=== PATIENT | female | born 1980 ===

== ENCOUNTER 2017-08-26 15:56 | Emergency (ER) | payer BC ==
[2017-08-26 16:26] VITALS: O2SAT 100
[2017-08-26] MEDS ORDERED: Sodium Chloride 0.9% 1,000 ML IV ONE (16:31)
[2017-08-26] MEDS ORDERED: Pantoprazole 40 mg EC Tab PO STA (16:33)
[2017-08-26 16:51] LABS: BASO # 0.1 K/uL (0.0-0.2); EOS # 0.1 K/uL (0.0-0.7); HEMOGLOBIN 13.6 g/dL (11.0-16.0); LYMPH # 2.3 K/uL (1.0-4.3); LYMPH % 31.4 % (20.0-40.0); MEAN CORPUSCULAR HEMOGLOBIN 30.5 pg (27.0-31.0); MEAN CORPUSCULAR HGB CONC 33.5 g/dL (33.0-37.0); MEAN PLATELET VOLUME 7.3 fL (7.2-11.7); MONO # 0.6 K/uL (0.0-0.8); MONO % 8.4 % (0.0-10.0); NEUT # 4.2 K/uL (1.8-7.0); NEUT % 57.2 % (50.0-75.0); RBC 4.47 Mil/uL (3.80-5.20); RED CELL DISTRIBUTION WIDTH 13.3 % (11.5-14.5); WHITE BLOOD COUNT 7.3 K/uL (4.8-10.8)
[2017-08-26 17:02] LABS: HCG,QUALITATIVE URINE NEGATIVE (NEGATIVE)
[2017-08-26 17:05] LABS: SQUAMOUS EPITHIAL 2 /hpf (0-5); URINE AMORPHOUS SEDIMENT MODERATE /ul (<OCC); URINE BILIRUBIN NEGATIVE (NEGATIVE); URINE BLOOD 2+ (NEGATIVE); URINE CLARITY Hazy (Clear); URINE COLOR Yellow (YELLOW); URINE GLUCOSE (UA) NORMAL (Normal); URINE LEUKOCYTE ESTERASE NEG Leu/uL (Negative); URINE PROTEIN NEGATIVE (NEGATIVE); URINE UROBILINOGEN NORMAL mg/dL (0.2-1.0)
--- NOTE | 2017-08-26 17:05 | C.PDOC ---
History Of Present Illness 36 yo female w/PMHx of endometriosis, ovarian cyst, come in for evaluation of "diffuse lower abdominal pain" for past 3-4 days. Pt reports, delay menstrual period for 11 days. Abdominal pain is intermitted associated with nausea. Otherwise, pt denies fever, chills, headache, dizziness, recent illness, drooling, neck pain, CP, SOB, dyspnea, vomiting, diarrhea, UTI sx, back pain, denies vaginal irritation or discharges. Ambulate to Ed for evaluation, not in nay apparent distress. Time Seen by Provider: 08/26/17 16:30 Chief Complaint (Nursing): Abdominal Pain History Per: Patient Past Medical History Reviewed: Historical Data, Nursing Documentation, Vital Signs Vital Signs: Last Vital Signs Temp 99.3 F 08/26/17 16:25 Pulse 81 08/26/17 16:25 Resp 18 08/26/17 16:25 BP 137/85 08/26/17 16:25 Pulse Ox 100 08/26/17 19:05 - Medical History Other PMH: Endometriosis Surgical History: No Surg Hx Family History: States: No Known Family Hx - Social History Hx Alcohol Use: Yes Hx Substance Use: No - Immunization History Hx Tetanus Toxoid Vaccination: No Hx Influenza Vaccination: No Hx Pneumococcal Vaccination: No Review Of Systems Except As Marked, All Systems Reviewed And Found Negative. Constitutional: Negative for: Fever, Chills Eyes: Negative for: Vision Change ENT: Negative for: Ear Discharge, Throat Pain, Throat Swelling Cardiovascular: Negative for: Chest Pain, Palpitations Respiratory: Negative for: Cough, Shortness of Breath, Wheezing Gastrointestinal: Positive for: Nausea, Abdominal Pain. Negative for: Vomiting , Diarrhea, Melena, Hematochezia, Hematemesis Genitourinary: Negative for: Dysuria, Frequency, Incontinence, Vaginal Discharge , Vaginal Bleeding Musculoskeletal: Negative for: Neck Pain, Back Pain Skin: Negative for: Rash Neurological: Negative for: Altered Mental Status, Headache, Dizziness Physical Exam - Physical Exam Appears: Well, Non-toxic, No Acute Distress Skin: Normal Color, Warm, Dry, No Rash Head: Normacephalic Eye(s): bilateral: PERRL Nose: No Flaring, No Discharge Oral Mucosa: Moist, No Drooling Tongue: Normal Appearing Lips: Normal Appearing Throat: No Erythema Neck: Supple Cardiovascular: Rhythm Regular Respiratory: No Decreased Breath Sounds, No Accessory Muscle Use, No Stridor, No Wheezing Gastrointestinal/Abdominal: Soft, Tenderness (mild epigastric), No Distention, No Guarding, No Rebound Back: No CVA Tenderness Extremity: Normal ROM, No Deformity, No Swelling Neurological/Psych: Oriented x3, Normal Speech ED Course And Treatment - Laboratory Results Result Diagrams: 08/26/17 16:46 08/26/17 18:07 Lab Interpretation: Normal Urine POC: Negative O2 Sat by Pulse Oximetry: 100 Pulse Ox Interpretation: Normal Progress Note: As per RN, pt refused offered medication tx, refused hydration with IVF. On re-eval, pt is afebrile, hemodynamicaly stable. non-toxic. Tolerate Po well in ED. PulsEOx 100% RA. ENT: no acute findings. neck: Supple , (-) JVD. Lungs: CTA B/L, BS equal B/L. Abd: benign, (-) guarding, (-) rebound. Neurologicaly intact. Blood work review and appears without acute abnoramlities. uA- normal study. Pt has clinical findings c/w epigastric pain. Pt advised and ref. to f/u with PMD, GI, SOCIAL SERVICES AIDE in 2-3 days for re-eavl. return if any new changes. Disposition Counseled Patient/Family Regarding: Studies Performed, Diagnosis, Need For Followup - Disposition Referrals: Boris Gaona MD [Staff Provider] - [facility] [Outside] Disposition: HOME/ ROUTINE Disposition Time: 18:27 Condition: STABLE Additional Instructions: Encourage fluids Diet restriction. Follow up with PMD, SOCIAL SERVICES AIDE in 2-3 days for re-evaluation. return to ED if any worsening or new changes. Instructions: Gastritis (DC) Forms: Post.Bid.Ship (Vietnamese) - Clinical Impression Clinical Impression: Epigastric pain
[2017-08-26] MEDS ORDERED: Sodium Chloride 0.9% 1,000 ML ONE (17:29)
[2017-08-26 18:22] LABS: ALB/GLOB RATIO 1.4 (1.0-2.1); ALBUMIN 4.6 g/dL (3.5-5.0); ALT/SGPT 17 U/L (9-52); AST/SGOT 27 U/L (14-36); BLOOD UREA NITROGEN 11 mg/dL (7-17); CALCIUM 9.5 mg/dl (8.6-10.4); GFR AFRICAN-AMERICAN > 60; GFR NON-AFRICAN AMERICAN > 60
[2017-08-26 19:18] VITALS: BP 132/84; PULSE 64; RESP 20; TEMP 99.1
[2017-08-26 19:21] LABS: LIPASE 72 U/L (23-300)
== END 2017-08-26 19:16 | disposition home or self-care (01) ==
LOC: C.ER 15:56
DX: R10.13 Epigastric pain (principal)